=== PATIENT | female | born 1960 | race Caucasian/White ===

== ENCOUNTER 2022-08-12 08:49 | Outpatient (CLI) | payer OTHER, SELFPAY ==
[2022-08-12 11:02] LABS: Albumin* 4.9 g/dL (3.3-5.0)
[2022-08-12 11:16] LABS: Chloride* 101 mmol/L (96-114)
[2022-08-12 11:17] LABS: Potassium* 4.4 mmol/L (3.6-5.1); Sodium* 139 mmol/L (135-149)
[2022-08-12 11:19] LABS: Cholesterol* 216 mg/dL (90-199); Creatinine* 0.6 mg/dL (0.5-1.5); Estimated Glomerular Filt Rate 102 ml/min
[2022-08-12 11:20] LABS: Alanine Aminotransferase* 51 U/L (4-35); Alkaline Phosphatase* 113 U/L (40-150); Aspartate Amino Transferase* 35 U/L (12-35); Bilirubin Total* 0.6 mg/dL (0.1-1.5); Blood Urea Nitrogen* 13 mg/dL (7-30); Carbon Dioxide* 29 mmol/L (20-32); Glucose* 111 mg/dL (60-115); Total Protein* 8.2 g/dL (6.0-8.3); Triglycerides* 198 mg/dL (40-149)
[2022-08-12 11:21] LABS: Calcium* 9.9 mg/dL (8.4-10.6); HDL Cholesterol* 50 mg/dL (>=50); LDL Cholesterol Calculated 126 mg/dL (<100)
== END 2022-08-12 08:50 | disposition home or self-care (01) ==
PROVIDERS: PCP Family Medicine; Visit Provider Family Medicine
DX: E78.5 Hyperlipidemia, unspecified (principal)
CPT/HCPCS: 80053; 80061

== ENCOUNTER 2022-10-12 08:15 | Outpatient (CLI) | payer OTHER, SELFPAY ==
--- NOTE | 2022-10-12 08:15 | CRLHL7_ITS ---
For Patients: As a result of the Century Cures Act, medical imaging exams and procedure reports are released immediately into your electronic medical record. You may view this report before your referring provider. If you have questions, please contact your health care provider. BILATERAL SCREENING MAMMOGRAM WITH COMPUTER-AIDED DETECTION TECHNIQUE: CC and MLO views were obtained. These mammographic images have been obtained using full-field digital technique. These mammographic images were interpreted with the benefit of computer-aided detection. COMPARISON FILM: 09/30/21, 11/14/19, 10/31/18. FINDINGS: There are scattered areas of fibroglandular density IMPRESSION: There is no radiographic evidence for malignancy. ASSESSMENT: BI-RADS Category 1: Negative RECOMMENDATION: Routine screening mammogram in 1 year. A lay language report of this examination will be provided to the patient. Mitch Pastrana M.D. Diagnostic Radiologist [email or web address] ANIL/Dictated by: Mitch Pastrana MD @ 10/12/2022 12:48:00 PM (Electronically Signed)
== END 2022-10-12 08:16 | disposition home or self-care (01) ==
LOC: MAMMO 08:17
PROVIDERS: PCP Family Medicine; Visit Provider Obstetrics & Gynecology
DX: Z12.31 Encounter for screening mammogram for malignant neoplasm of breast (principal)
CPT/HCPCS: 77067

== ENCOUNTER 2023-08-11 08:05 | Outpatient (CLI) | payer OTHER, SELFPAY | END 2023-08-11 08:06 | disposition home or self-care (01) | LOC: NFLDREF 12:25 | PROVIDERS: PCP Family Medicine; Referring Provider Family Medicine; Visit Provider Family Medicine | DX: Z00.00 Encounter for general adult medical examination without abnormal findings (principal); E78.5 Hyperlipidemia, unspecified | CPT/HCPCS: 80053; 80061 ==

== ENCOUNTER 2023-10-18 08:57 | Outpatient (CLI) | payer OTHER, SELFPAY ==
--- NOTE | 2023-10-18 09:15 | CRLHL7_ITS ---
For Patients: As a result of the Century Cures Act, medical imaging exams and procedure reports are released immediately into your electronic medical record. You may view this report before your referring provider. If you have questions, please contact your health care provider. BILATERAL SCREENING MAMMOGRAM WITH COMPUTER-AIDED DETECTION TECHNIQUE: CC and MLO views were obtained. These mammographic images have been obtained using full-field digital technique. These mammographic images were interpreted with the benefit of computer-aided detection. COMPARISON FILM: 10/12/22, 09/30/21, 11/14/19. FINDINGS: There are scattered areas of fibroglandular density IMPRESSION: There is no radiographic evidence for malignancy. ASSESSMENT: BI-RADS Category 1: Negative RECOMMENDATION: Routine screening mammogram in 1 year. A lay language report of this examination will be provided to the patient. Mitch Pastrana M.D. Diagnostic Radiologist [email or web address] Transcribed: 5:54 [email or web address] barrientos/Dictated by: Mitch Pastrana MD @ 10/18/2023 10:06:00 AM (Electronically Signed)
== END 2023-10-18 08:58 | disposition home or self-care (01) ==
LOC: MAMMO 08:58
PROVIDERS: PCP Family Medicine; Visit Provider Family Medicine
DX: Z12.31 Encounter for screening mammogram for malignant neoplasm of breast (principal)
CPT/HCPCS: 77067

== ENCOUNTER 2024-08-31 07:43 | Outpatient (CLI) | payer OTHER, SELFPAY ==
--- OUTSIDE RECORDS SUMMARY | 2024-09-03 04:15 | XMS_ITS | Referral Summary ---
Author Organization [facility] Address [address] [place] [id number] Care Team Providers Care Quality Review Trainer Name Role Phone Garry Guan MD Primary Care Provider [phone] Allergies No known active allergies Medications Medication Sig Dispensed Refills Start Date End Date Status atorvastatin (LIPITOR) 40 MG tablet Take 40 mg by mouth daily Active Ascorbic Acid 500 MG CAPS Take 500 mg by mouth daily Active acetaminophen (TYLENOL) 500 MG tabletIndications:P ostoperative pain Take 1-2 tablets (500-1,000 mg) by mouth every 6 hours as needed for mild pain 12/16/2023 Active ibuprofen (ADVIL/MOTRIN) 200 MG tabletIndications:P ostoperative pain Take 1-3 tablets (200-600 mg) by mouth every 4 hours as needed for pain 12/16/2023 Active senna-docusate (SENOKOT-S/PERICOLA CE) 8.6-50 MG tabletIndications:P ostoperative pain Take 1 tablet by mouth 2 times daily as needed for constipation 12/16/2023 Active Social History Tobacco Use Types Packs/Day Years Used Date Smoking Tobacco: Never Smokeless Tobacco: Never Tobacco Cessation:Counseling Given: Not Answered Adolescent Education Answer Date Record ed Getting School Help Needed Not on file 12/15 Sex and Gender Information Value Date Recorded Sex Assigned at Female 01/19/2024 11:55 AM HEALTHCARE PROF Gender Identity Female 01/19/2024 11:55 AM HEALTHCARE PROF Sexual Orientation Straight 01/19/2024 11 :55 AM HEALTHCARE PROF Last Filed Vital Signs Vital Sign Reading Time Taken Comments Blood Pressure 124/74 12/16/2023 4:30 PM HEALTHCARE PROF Pulse 88 12/16/2023 3:30 PM HEALTHCARE PROF Temperature 36.7 ??C (98 ??F) 12/16/2023 4:30 PM HEALTHCARE PROF Respiratory Rate 16 12/16/2023 4:30 PM HEALTHCARE PROF Oxygen Saturation 98% 12/16/2023 4:30 PM HEALTHCARE PROF Inhaled Oxygen Concentration - - Weight 83.3 kg (183 lb 11.2 oz) 024 11:11 AM HEALTHCARE PROF Height 160 cm (5' 3) 12/16/2023 11:11 AM HEALTHCARE PROF Body Mass Index 32.54 12/16/2023 11:11 AM HEALTHCARE PROF Plan of Treatment Not on file Care Teams Quality Review Trainer Relationship Specialty Start Date End Date Garry Guan MD [facility] [address] [place] [address] PCP - General Family Medicine 12/16/23
--- OUTSIDE RECORDS SUMMARY | 2024-09-03 04:15 | XMS_ITS | Clinical Summary ---
Author Organization [facility] Address [address] [place] [id number] Care Team Providers Care Chemistry Teacher Name Role Phone Garry Guan MD Primary Care Provider [phone] Allergies No known active allergies Medications Medication [...] Sex Assigned at Female 01/19/2024 11:55 AM MANAGER WINTER Gender Identity Female 01/19/2024 11:55 AM MANAGER WINTER Sexual Orientation Straight 01/19/2024 11 :55 AM MANAGER WINTER Last Filed Vital Signs Vital Sign Reading Time Taken Comments Blood Pressure 124/74 12/16/2023 4:30 PM MANAGER WINTER Pulse 88 12/16/2023 3:30 PM MANAGER WINTER Temperature 36.7 ??C (98 ??F) 12/16/2023 4:30 PM MANAGER WINTER Respiratory Rate 16 12/16/2023 4:30 PM MANAGER WINTER Oxygen Saturation 98% 12/16/2023 4:30 PM MANAGER WINTER Inhaled Oxygen Concentration - - Weight 83.3 kg (183 lb 11.2 oz) 024 11:11 AM MANAGER WINTER Height 160 cm (5' 3) 12/16/2023 11:11 AM MANAGER WINTER Body Mass Index 32.54 12/16/2023 11:11 AM MANAGER WINTER Plan of Treatment Health Maintenance Due Date Last Done Comments ADVANCE CARE PLANNING 1960 ANNUAL REVIEW OF HM ORDERS 1960 CT COLONOGRAPHY 1960 FIT 1960 FLEX SIG 1960 GLUCOSE 1960 LIPID 1960 MAMMO SCREENING 1960 YEARLY PREVENTIVE VISIT 1960 sDNA (Cologuard) 1960 COLONOSCOPY 1970 COLORECTAL CANCER SCREENING 1970 HIV SCREENING 1975 HEPATITIS C SCREENING 1978 PAP 1981 PHQ-2 (once per calendar year) 2023 COVID-19 Vaccine ( season) 2024 09/09/2023, 10/02/2022, 03/31/2022, Additional history exists INFLUENZA VACCINE (#1) 2024 3, 10/02/2022, 09/05/2021, Additional history exists DTAP/TDAP/TD IMMUNIZATION (2 - Td or Tdap) 06/18/2025 06/18/2015 RSV VACCINE (1 - 1-dose 75+ series) 2035 ZOSTER IMMUNIZATION Completed 11/02/2019, 9 HPV IMMUNIZATION Aged Out No longer e ligible based on patient's age to complete this topic MENINGITIS IMMUNIZATION Aged Out No l onger eligible based on patient's age to complete this topic Pneumococcal Vaccine: Pediatrics (0 to 5 Years) and At-Risk Patients (6 to 64 Years) Aged Out No longer eligible based on patient's age to complete this topic RSV MONOCLONAL ANTIBODY Aged Out No l onger eligible based on patient's age to complete this topic Care Teams Chemistry Teacher Relationship Specialty Start Date End Date Garry Guan MD [facility] & [address] [address] PCP - General Family Medicine 12/16/23
== END 2024-08-31 07:44 | disposition home or self-care (01) ==
LOC: NFLDREF 09-03 04:13
PROVIDERS: PCP Family Medicine; Referring Provider Family Medicine; Visit Provider Family Medicine
DX: Z00.00 Encounter for general adult medical examination without abnormal findings (principal); E78.5 Hyperlipidemia, unspecified; R79.89 Other specified abnormal findings of blood chemistry
CPT/HCPCS: 80053; 80061

== ENCOUNTER 2024-10-30 06:22 | Outpatient (CLI) | payer OTHER, SELFPAY ==
--- NOTE | 2024-10-30 07:57 | W.ANESCHARGE ---
Anesthesia Charges Start Date/Time Anesthesia Start Date: 10/30/24 Anesthesia Start Time: 07:23 Stop Date/Time Anesthesia Stop Date: 10/30/24 Anesthesia Stop Time: 07:53
--- NOTE | 2024-10-30 08:50 | W.ANESCHARGE ---
Anesthesia Charges Start Date/Time Anesthesia Start Date: 10/30/24 Anesthesia Start Time: 07:23 Stop Date/Time Anesthesia Stop Date: 10/30/24 Anesthesia Stop Time: 07:53
== END 2024-10-30 06:23 | disposition home or self-care (01) ==
LOC: OP CLINIC 06:23
PROVIDERS: PCP Family Medicine; Visit Provider Surgery
DX: Z12.11 Encounter for screening for malignant neoplasm of colon (principal); D64.9 Anemia, unspecified; K57.30 Diverticulosis of large intestine without perforation or abscess without bleeding; Z86.0100 Personal history of colon polyps, unspecified
CPT/HCPCS: 00812; 45378; J2704

== ENCOUNTER 2024-11-27 13:19 | Outpatient (CLI) | payer OTHER, SELFPAY ==
--- NOTE | 2024-11-27 13:40 | CRLHL7_ITS ---
For Patients: As a result of the Century Cures Act, medical imaging exams and procedure reports are released immediately into your electronic medical record. You may view this report before your referring provider. If you have questions, please contact your health care provider. BILATERAL SCREENING MAMMOGRAM WITH COMPUTER-AIDED DETECTION AND TOMOSYNTHESIS TECHNIQUE: CC and MLO views were obtained. These mammographic images have been obtained using full-field digital technique. These mammographic images were interpreted with the benefit of computer-aided detection. Breast Tomosynthesis was used in this interpretation. COMPARISON FILM: 10/18/23, 10/12/22, 09/30/21. FINDINGS: There are scattered areas of fibroglandular density. IMPRESSION: There is no radiographic evidence for malignancy. ASSESSMENT: BI-RADS Category 2: Benign RECOMMENDATION: Routine screening mammogram in 1 year. A lay language report of this examination will be provided to the patient. Mitch Pastrana M.D. Diagnostic Radiologist [email or web address] SP/Dictated by: Mitch Pastrana MD @ 11/28/2024 9:13:00 AM (Electronically Signed)
== END 2024-11-27 13:20 | disposition home or self-care (01) ==
LOC: MAMMO 13:19
PROVIDERS: PCP Family Medicine; Visit Provider Family Medicine
DX: Z12.31 Encounter for screening mammogram for malignant neoplasm of breast (principal)
CPT/HCPCS: 77063; 77067

== ENCOUNTER 2025-09-04 07:45 | Outpatient (CLI) | payer MEDICARE, BC, SELFPAY | END 2025-09-04 07:46 | disposition home or self-care (01) | LOC: NFLDREF 09-07 09:35 | PROVIDERS: PCP Family Medicine; Referring Provider Family Medicine; Visit Provider Family Medicine | DX: E78.5 Hyperlipidemia, unspecified (principal) | CPT/HCPCS: 80053; 80061 ==